=== PATIENT | male | born 1970 | race Caucasian/White ===

== ENCOUNTER 2025-05-01 03:11 | Emergency (ER) | payer BC ==
[~2025-05-01] VITALS: Ht 180.3 cm; Wt 104.0 kg
[2025-05-01 03:13] VITALS: TEMP 36.6; O2SAT 97
[2025-05-01] MEDS ORDERED: ACETAMINOPHEN 325MG TABLET PO ONE (04:30)
[2025-05-01] MEDS: IBUPROFEN 600MG TABLET PO ONE (04:44)
[2025-05-01 05:18] VITALS: BP 145/89; PULSE 94; RESP 16; O2SAT 94
== END 2025-05-01 05:21 | disposition home or self-care (01) ==
LOC: ER 03:11
DX: S90.32XA Contusion of left foot, initial encounter (principal); S90.31XA Contusion of right foot, initial encounter; I10 Essential (primary) hypertension; Z88.2 Allergy status to sulfonamides; X58.XXXA Exposure to other specified factors, initial encounter; Y93.01 Activity, walking, marching and hiking; Y92.89 Other specified places as the place of occurrence of the external cause; Y99.8 Other external cause status
CPT/HCPCS: 99283